=== PATIENT | male | born 1955 | race Caucasian/White ===

== ENCOUNTER → 2017-08-14 | Outpatient (CLI) | payer OTHER ==
[~2017-08-14] MED LIST: LO-DOSE ASPIRIN81 M1 PO; ZESTORETIC 10-1 EAC1 PO; ZYLOPRIM100 MG PO
== END | disposition home or self-care (01) ==
LOC: CDC 14:17
DX: Z01.810 Encounter for preprocedural cardiovascular examination (principal); M25.561 Pain in right knee; M25.522 Pain in left elbow
CPT/HCPCS: 93000

== ENCOUNTER 2017-08-21 09:22 | Day surgery (SDC) | payer OTHER ==
[~2017-08-21] VITALS: Ht 165.1 cm; Wt 77.1 kg
[2017-08-21 10:10] VITALS: BP 130/66
[2017-08-21 13:20] VITALS: BP 130/65
[2017-08-21 14:01] VITALS: BP 124/64
== END 2017-08-21 14:03 | disposition home or self-care (01) ==
LOC: SDC 09:22
DX: M1A.9XX1 Chronic gout, unspecified, with tophus (tophi) (principal); I10 Essential (primary) hypertension
CPT/HCPCS: 88305; J1100; J2250; J2405; J3010